=== PATIENT | male | born 1945 | race Caucasian/White ===

== ENCOUNTER 2018-09-10 15:20 | Inpatient (IN) | payer MEDICARE, BC ==
[2018-09-10] MEDS ORDERED: IPRATROPIUM-ALBUTEROL 3 ML NEB INHALATION STA (15:45)
--- NOTE | 2018-09-10 15:45 | ED ---
General Adult HPI - General Chief complaint: Shortness of Breath Stated complaint: Sob Time Seen by Provider: 09/10/18 15:20 Source: EMS, RN notes reviewed Mode of arrival: EMS Limitations: no limitations - History of Present Illness Initial comments: This is a 73-year-old male who presents emergency Department with a history of COPD. Presents to [facility] with difficulty breathing. 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 Patient refuses BiPAP patient refused intubation and patient refuses any CPR. Patient understands that he has agreed to a no CODE STATUS. Patient states the difficulty breathing started a few days ago and has gotten progressively worse. Patient denies any chest pain or palpitations. Patient denies headache patient denies numbness or weakness. Patient denies abdominal pain patient denies nausea vomiting diarrhea. According to EMS he's been oxygenating at 98% high flow oxygen via nasal cannula high flow device. Patient states he does feel better than when he was initially seen at [facility] but he still is worse than his baseline. - Related Data Home Medications Medication Instructions Recorded Confirmed ALPRAZolam [Xanax] 0.25 mg PO DAILY PRN 04/04/16 04/04/16 Albuterol Sulfate [Proair Hfa] 2 puff INHALATION RT-Q6H PRN 04/04/16 04/04/16 Aspirin 81 mg PO DAILY 04/04/16 04/04/16 Budesonide/Formoterol Fumarate 2 puff INHALATION RT-BID 04/04/16 04/04/16 [Symbicort 160-4.5 Mcg Inhaler] Cholecalciferol [Vitamin D3] 1,000 unit PO DAILY 04/04/16 04/04/16 Esomeprazole Magnesium [NexIUM] 40 mg PO DAILY 04/04/16 04/04/16 Nac (N-Acetyl Cysteine) 600 mg PO BID 04/04/16 04/04/16 Nitroglycerin Sl Tabs [Nitrostat] 0.4 mg SUBLINGUAL Q5M PRN 04/04/16 04/04/16 Potassium Chloride [K-Tab ER] 10 meq PO MOWEFR 04/04/16 04/04/16 Previous Rx's Medication Instructions Recorded Albuterol Nebulized [Ventolin 2.5 mg INHALATION RT-QID PRN #0 04/08/16 Nebulized] Atorvastatin [Lipitor] 80 mg PO HS #30 tab 04/08/16 Clopidogrel [Plavix] 75 mg PO DAILY #30 tab 04/08/16 Hydrochlorothiazide [Hydrodiuril] 25 mg PO MoWeFr@0900 #0 tab 04/08/16 Ipratropium Nebulized [Atrovent 0.5 mg INHALATION RT-QID #0 04/08/16 Nebulized 0.2 MG/ML] Isosorbide Mononitrate ER [Imdur] 60 mg PO DAILY #30 tab.er.24h 04/08/16 Levofloxacin [Levaquin] 500 mg PO Q24H #7 tab 04/08/16 Metoprolol Tartrate [Lopressor] 25 mg PO BID #60 tab 04/08/16 predniSONE 10 mg PO DIRECTED #48 tab 04/08/16 predniSONE 10 mg PO DAILY #0 04/08/16 Allergies Allergy/AdvReac Type Severity Reaction Status Date / Time Penicillins Allergy Rash/Hives Verified 04/04/16 16:17 Review of Systems ROS Statement: Those systems with pertinent positive or pertinent negative responses have been documented in the HPI. ROS Other: All systems not noted in ROS Statement are negative. Past Medical History Past Medical History: Chest Pain / Angina, COPD, GERD/Reflux, Hypertension Additional Past Medical History / Comment(s): Chronic back pain; skin cancer History of Any Multi-Drug Resistant Organisms: None Reported Past Surgical History: Appendectomy, Cholecystectomy, Heart Catheterization, Hernia Repair Additional Past Surgical History / Comment(s): Right lung collapse x2, vasectomy, 2007 heart catheterization, 2002 and 2008 checked for bladder cancer, skin cancer removal, cataracts removed Past Anesthesia/Blood Transfusion Reactions: No Reported Reaction Past Psychological History: No Psychological Hx Reported Smoking Status: Former smoker Past Alcohol Use History: Occasional Past Drug Use History: None Reported General Exam - General Exam Comments Initial Comments: GENERAL: Patient is well-developed and well-nourished. Patient is nontoxic and well- hydrated and is in mild distress. ENT: Neck is soft and supple. No significant lymphadenopathy is noted. Oropharynx is clear. Moist mucous membranes. Neck has full range of motion without eliciting any pain. EYES: The sclera were anicteric and conjunctiva were pink and moist. Extraocular movements were intact and pupils were equal round and reactive to light. Eyelids were unremarkable. PULMONARY: Respiratory wheezing and diminished breath sounds throughout CARDIOVASCULAR: There is a regular rate and rhythm without any murmurs gallops or rubs. ABDOMEN: Soft and nontender with normal bowel sounds. No palpable organomegaly was noted. There is no palpable pulsatile mass. SKIN: Multiple areas of ecchymosis NEUROLOGIC: Patient is alert and oriented x3. Cranial nerves II through XII are grossly intact. Motor and sensory are also intact. Normal speech, volume and content. Symmetrical smile. MUSCULOSKELETAL: Normal extremities with adequate strength and full range of motion. 2+ edema bilateral with left being greater than right LYMPHATICS: No significant lymphadenopathy is noted PSYCHIATRIC: Normal psychiatric evaluation. Limitations: no limitations Course Vital Signs 09/10/18 15:29 Temperature 98.2 F Pulse Rate 105 H Respiratory 26 H Rate Blood Pressure 141/85 O2 Sat by Pulse 95 Oximetry Medical Decision Making - Medical Decision Making EKG shows sinus tachycardia at 104 bpm [place] interval 230 Q's is 96 QT interval 380 QTC is 499. Patient's EKG shows no ST segment elevation or depression. I spoke with Dr. Hoffman agreed to accept the patient I wrote admitting orders and consult Dr. Villanueva. Patient was adamant that he was a no code and did not even want BiPAP. Patient he refused any type of mask. Disposition Clinical Impression: Acute exacerbation of chronic obstructive airways disease Disposition: ADMITTED IP TO THIS HOSP Referrals: Trinity Guerra MD [Primary Care Provider] - 1-2 days Time of Disposition: 15:45
[2018-09-10] MEDS: methylPREDNISolone SOD SUCCI 125 MG/2 ML VIAL IV SCH (19:00)
[2018-09-10] MEDS: IPRATROPIUM-ALBUTEROL 3 ML NEB INHALATION PRN ×2 (19:45→23:15)
[2018-09-10] MEDS ORDERED: ALPRAZolam 0.25 MG TAB PO PRN (21:07)
[2018-09-10] MEDS: ATORVASTATIN 80 MG TAB PO SCH (21:28)
[2018-09-10] MEDS: HYDROcodone/APAP 5-325MG 1 EACH TAB PO PRN (21:28)
[2018-09-10] MEDS: METOPROLOL TARTRATE 25 MG TAB PO SCH (21:28)
--- NOTE | 2018-09-10 23:49 | P.HPIM ---
History of Present Illness H&P Date: 09/10/18 Chief Complaint: Shortness of breath Patient is a 73-year-old male with a known history of COPD on follow with Dr. Phillips in the clinic, coronary artery disease currently on maximal medical therapy, GERD, hypertension, chronic back pain and history of skin cancer removed, previous history of smoking was initially presented to [facility] due to difficulty in breathing for the past few days and is getting worse. Patient was initially seen at [facility] and was treated for acute COPD exacerbation. 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 The patient refused to wear BiPAP machine. Currently on high flow nasal cannula oxygen. Otherwise patient denied any fever or chills. Patient does have cough without sputum production. Denied any recent illnesses. Denied any nausea vomiting or abdominal pain or diarrhea. No dysuria or hematuria. Patient has been afebrile. Patient is currently DO NOT RESUSCITATE. Patient does have a history of cardiac catheterization and was told blockages were inoperable. Currently on maximal medical therapy. Chest x-ray and laboratory data reviewed from [facility]. Review of Systems Constitutional: Patient denies any fever or chills . No generalized weakness or weight loss. Abdomen: Patient denied nausea vomiting and diarrhea and abdominal pain. Cardiovascular: Patient denies any chest pain or short of breath no palpitations. Respiratory: Patient does have cough without sputum production. Patient does have shortness of breath Neurologic: Patient denied any numbness or tingling headache. Musculoskeletal: Patient denies any complaints of joint swelling or deformity. Skin: Negative Psychiatric: Negative Endocrine: No heat or cold intolerance. No recent weight gain. Genitourinary: No dysuria or hematuria. All other 14 point ROS negative except the above Past Medical History Past Medical History: Chest Pain / Angina, COPD, GERD/Reflux, Hypertension Additional Past Medical History / Comment(s): Chronic back pain; skin cancer History of Any Multi-Drug Resistant Organisms: None Reported Past Surgical History: Appendectomy, Cholecystectomy, Heart Catheterization, Hernia Repair Additional Past Surgical History / Comment(s): Right lung collapse x2, vasectomy, 2007 heart catheterization, 2002 and 2008 checked for bladder cancer, skin cancer removal, cataracts removed Past Anesthesia/Blood Transfusion Reactions: No Reported Reaction Past Psychological History: No Psychological Hx Reported Smoking Status: Former smoker Past Alcohol Use History: Occasional Past Drug Use History: None Reported - Past Family History Mother Family Medical History: Asthma Father Family Medical History: Respiratory Disorder Medications and Allergies Home Medications Medication Instructions Recorded Confirmed Type ALPRAZolam [Xanax] 0.25 mg PO DAILY PRN 04/04/16 09/10/18 History Aspirin 81 mg PO DAILY 04/04/16 09/10/18 History Budesonide/Formoterol Fumarate 2 puff INHALATION RT-BID 04/04/16 09/10/18 History [Symbicort 160-4.5 Mcg Inhaler] Cholecalciferol [Vitamin D3] 1,000 unit PO DAILY 04/04/16 09/10/18 History Nac (N-Acetyl Cysteine) 600 mg PO BID 04/04/16 09/10/18 History Nitroglycerin Sl Tabs [Nitrostat] 0.4 mg SUBLINGUAL Q5M PRN 04/04/16 09/10/18 History Atorvastatin [Lipitor] 80 mg PO HS #30 tab 04/08/16 09/10/18 Rx Clopidogrel [Plavix] 75 mg PO DAILY #30 tab 04/08/16 09/10/18 Rx Isosorbide Mononitrate ER [Imdur] 60 mg PO DAILY #30 tab.er.24h 04/08/16 09/10/18 Rx predniSONE 10 mg PO DAILY #0 04/08/16 09/10/18 Rx Esomeprazole Magnesium [NexIUM] 20 mg PO DAILY 09/10/18 09/10/18 History Hydrochlorothiazide [Hydrodiuril] 25 mg PO DAILY 09/10/18 09/10/18 History Hydrocodone/Acetaminophen [[place] 1 tab PO Q4HR PRN 09/10/18 09/10/18 History 5-325] Metoprolol Tartrate [Lopressor] 25 mg PO HS 09/10/18 09/10/18 History Potassium Chloride [Klor-Con 20] 20 meq PO DAILY 09/10/18 09/10/18 History Promethaz-Cod 6.25-10 mg/5 ml 5 ml PO Q6HR PRN 09/10/18 09/10/18 History [Phenergan with Codeine] Allergies Allergy/AdvReac Type Severity Reaction Status Date / Time Penicillins Allergy Rash/Hives Verified 09/10/18 17:32 Physical Exam Vitals: Vital Signs Temp Pulse Pulse Resp BP BP Pulse Ox 09/10/18 23:26 76 09/10/18 23:15 80 09/10/18 21:15 98.6 F 104 H 18 162/82 96 09/10/18 20:48 98.8 F 104 H 20 147/83 97 09/10/18 19:57 101 H 09/10/18 19:45 100 09/10/18 19:00 87 22 139/42 94 L 09/10/18 16:57 98 20 96 09/10/18 16:35 104 H 09/10/18 16:22 101 H 09/10/18 15:29 98.2 F 105 H 26 H 141/85 95 Intake and Output 09/10/18 09/10/18 09/11/18 14:59 22:59 06:59 Other: Weight 81.647 kg PHYSICAL EXAMINATION: Patient is lying in the bed comfortably, no acute distress, awake alert and oriented.. HEENT: Normocephalic. Neck is supple. Pupils reactive. Nostrils clear. Oral cavity is moist. Ears reveal no drainage. Neck reveals no JVD, carotid bruits, or thyromegaly. CHEST EXAMINATION: Trachea is central. Symmetrical expansion. Bilateral diffuse wheezing and scattered rhonchi. CARDIAC: Normal S1, S2 with no gallops. No murmurs ABDOMEN: Soft. Bowel sounds normal. No organomegaly. No abdominal bruits. Extremities: reveal no edema. No clubbing or cyanosis Neurologically awake, alert, oriented x3 with well-coordinated movements. No focal deficits noted Skin: No rash or skin lesions. Psychiatric: Coperative. Nonsuicidal Musculoskeletal: No joint swelling or deformity. Normal range of motion. Thrombosis Risk Factor Assmnt - DVT/VTE Prophylaxis DVT/VTE Prophylaxis: Pharmacologic Prophylaxis ordered - Choose All That Apply Any of the Below Risk Factors Present?: Yes Each Factor Represents 1 point: Abnormal pulmonary function (COPD) Other Risk Factors: Yes Each Risk Factor Represents 2 Points: Age 61-74 years Thrombosis Risk Factor Assessment Total Risk Factor Score: 3 Thrombosis Risk Factor Assessment Level: Moderate Risk Assessment and Plan Assessment: Acute COPD exacerbation Acute hypoxic respiratory failure. Patient refuses BiPAP. Currently on high flow nasal cannula oxygen. GERD Hypertension Chronic back pain Coronary artery disease status post cath. Maximum medical therapy was recommended. Previous history of smoking DVT prophylaxis with heparin subcu CODE STATUS is DO NOT RESUSCITATE/DO NOT INTUBATE Plan: Patient will be continued on DuoNeb's and IV steroids. Continue with Symbicort 2 puffs twice a day. Antibiotics will be started in the form of azithromycin. Pulmonary was consulted. Continue with oxygen therapy. Further recommendations based on the clinical course. Prognosis is guarded. Discussed with the patient and family at bedside in detail. Time with Patient: Greater than 30
[2018-09-11] MEDS: methylPREDNISolone SOD SUCCI 125 MG/2 ML VIAL IV SCH ×4 (00:10→17:28)
[2018-09-11] MEDS: HEPARIN SODIUM,PORCINE 5,000 UNIT/ML 1 ML VIAL SQ SCH ×3 (00:10→16:04)
[2018-09-11] MEDS: AZITHROMYCIN 500 MG TAB PO SCH ×2 (00:10→22:20)
[2018-09-11] MEDS: IPRATROPIUM-ALBUTEROL 3 ML NEB INHALATION PRN ×3 (03:11→11:02)
[2018-09-11 07:17] LABS: Glucose,Whole Blood 170 mg/dL (75-99)
--- NOTE | 2018-09-11 07:41 | XR ---
EXAMINATION TYPE: XR chest 1V DATE OF EXAM: 09/11/2018 COMPARISON: 09/10/2018 HISTORY: COPD TECHNIQUE: Single frontal view of the chest is obtained. FINDINGS: There is marked hyperinflation. Subsegmental changes involving the lung bases are noted. F indings are suspicious for a nodular density measuring 1 cm the right upper lobe. No overt failure. P ulmonary arteries prominent. IMPRESSION: 1. Stable severe COPD with basilar atelectasis favored over pneumonia. Correlate for pulmonary arteri al hypertension. 2. There is a 1 cm nodule in the right upper lobe CT chest recommended.
[2018-09-11] MEDS ORDERED: SYMBICORT 160-4.5 MCG INHALER INHALATION SCH (08:00)
[2018-09-11] MEDS: HYDROCHLOROTHIAZIDE 25 MG TAB PO SCH (08:37)
[2018-09-11] MEDS: CLOPIDOGREL 75 MG TAB PO SCH (08:37)
[2018-09-11] MEDS: HYDROcodone/APAP 5-325MG 1 EACH TAB PO PRN ×3 (08:37→19:21)
[2018-09-11] MEDS: POTASSIUM CHLORIDE ER 20 MEQ TAB.ER PO SCH (08:37)
[2018-09-11] MEDS: CHOLECALCIFEROL 1,000 UNIT TAB PO SCH (08:38)
[2018-09-11] MEDS: ISOSORBIDE MONONITRATE ER 60 MG TAB.ER.24H PO SCH (08:38)
[2018-09-11] MEDS: ASPIRIN 81 MG PO SCH (08:38)
[2018-09-11 10:03] LABS: ALT 45 U/L (21-72); AST 38 U/L (17-59); Albumin 3.4 g/dL (3.5-5.0); Alkaline Phosphatase 77 U/L (38-126); Anion Gap 5 mmol/L; Blood Urea Nitrogen 26 mg/dL (9-20); Calcium 8.7 mg/dL (8.4-10.2); Carbon Dioxide 37 mmol/L (22-30); Chloride 99 mmol/L (98-107); Glucose 166 mg/dL (74-99); Potassium 4.3 mmol/L (3.5-5.1); Sodium 141 mmol/L (137-145); Total Bilirubin 0.7 mg/dL (0.2-1.3); Total Protein 5.8 g/dL (6.3-8.2)
[2018-09-11 10:30] LABS: Basophils % (A) 0 %; Eosinophils # (A) 0.1 k/uL (0-0.7); Eosinophils % (A) 1 %; HCT 41.4 % (39.0-53.0); HGB 13.1 gm/dL (13.0-17.5); Hypochromasia Slight; Lymphocytes # (A) 0.3 k/uL (1.0-4.8); Lymphocytes % (A) 6 %; MCH 28.8 pg (25.0-35.0); MCHC 31.5 g/dL (31.0-37.0); MCV 91.2 fL (80.0-100.0); Mean Platelet Volume 7.8; Monocytes # (A) 0.4 k/uL (0-1.0); Monocytes % (A) 8 %; Neutrophils # (A) 4.2 k/uL (1.3-7.7); Neutrophils % (A) 84 %; Platelet Count 163 k/uL (150-450); RBC 4.54 m/uL (4.30-5.90); RDW 14.5 % (11.5-15.5)
[2018-09-11 11:48] LABS: Glucose,Whole Blood 193 mg/dL (75-99)
--- NOTE | 2018-09-11 11:54 | P.CNPUL ---
History of Present Illness Consult date: 09/11/18 Requesting physician: Chaitanya Hoffman Reason for consult: dyspnea, cough, COPD Chief complaint: dyspnea, cough History of present illness: This is 73-year-old white male patient of Dr. Trinity Guerra, past medical history of advanced COPD, with baseline FEV1 of 0.53 L or 16% of the predicted v tawnya, with diffusion capacity of 51% of predicted, with chronic hypoxemic respiratory failure, who presented to the hospital on 09/10/2018 with complaints of dyspnea. Patient initially went to [facility] and was transferred to this hospital. Patient had refused BiPAP support refused intubation and CPR, his CODE STATUS is DO NOT RESUSCITATE. Patient symptoms started a few days ago and became progressively worse. Denied any chest pain or palpitations, denied any headaches, no fever or chills, no nausea vomiting or diarrhea.patient is a former smoker, but has quit smoking a while ago. Follows with Dr. Karimi in the pulmonary clinic, last seen in October 2017. he is on Inkruse Ellipta, DuoNeb, Ventolin, Symbicort at home, patient is on maintenance dose prednisone 10 mg daily. chest x-ray at [facility] showed marked hyperinflation, basilar atelectasis, pulmonary arterial hypertension, and a 1 cm nodule in the right upper lobe. lab work has been reviewed, no evidence of leukocytosis, CBC was unremarkable, electrolytes were unremarkable, CO2 is 37 consistent with history of chronic hypercapnic respiratory failure, BUN is 26 and creatinine 0.49. LFTs were within normal limits. he remains on 10 L per high flow nasal cannula, and his pulse ox is 99%.empiric antibiotic coverage in the form of Zithromax, nebulized bronchodilators, IV steroids, Symbicort. Review of Systems All systems: negative Constitutional: Denies chills, Denies fever Eyes: denies blurred vision, denies pain Ears, nose, mouth and throat: Denies headache, Denies sore throat Cardiovascular: Reports decreased exercise tolerance, Reports dyspnea on exertion, Denies chest pain, Denies shortness of breath Respiratory: Reports dyspnea, Reports home oxygen, Denies cough Gastrointestinal: Denies abdominal pain, Denies diarrhea, Denies nausea, Denies vomiting Musculoskeletal: Denies myalgias Integumentary: Denies pruritus, Denies rash Neurological: Denies numbness, Denies weakness Psychiatric: Denies anxiety, Denies depression Endocrine: Denies fatigue, Denies weight change Past Medical History Past Medical History: Chest Pain / Angina, COPD, GERD/Reflux, Hypertension Additional Past Medical History / Comment(s): Chronic back pain; skin cancer History of Any Multi-Drug Resistant Organisms: None Reported Past Surgical History: Appendectomy, Cholecystectomy, Heart Catheterization, Hernia Repair Additional Past Surgical History / Comment(s): Right lung collapse x2, vasectomy, 2007 heart catheterization, 2002 and 2008 checked for bladder cancer, skin cancer removal, cataracts removed Past Anesthesia/Blood Transfusion Reactions: No Reported Reaction Past Psychological History: No Psychological Hx Reported Smoking Status: Former smoker Past Alcohol Use History: Occasional Past Drug Use History: None Reported - Past Family History Mother Family Medical History: Asthma Father Family Medical History: Respiratory Disorder Medications and Allergies Home Medications Medication Instructions Recorded Confirmed Type ALPRAZolam [Xanax] 0.25 mg PO DAILY PRN 04/04/16 09/10/18 History Aspirin 81 mg PO DAILY 04/04/16 09/10/18 History Budesonide/Formoterol Fumarate 2 puff INHALATION RT-BID 04/04/16 09/10/18 History [Symbicort 160-4.5 Mcg Inhaler] Cholecalciferol [Vitamin D3] 1,000 unit PO DAILY 04/04/16 09/10/18 History Nac (N-Acetyl Cysteine) 600 mg PO BID 04/04/16 09/10/18 History Nitroglycerin Sl Tabs [Nitrostat] 0.4 mg SUBLINGUAL Q5M PRN 04/04/16 09/10/18 Hi story Atorvastatin [Lipitor] 80 mg PO HS #30 tab 04/08/16 09/10/18 Rx Clopidogrel [Plavix] 75 mg PO DAILY #30 tab 04/08/16 09/10/18 Rx Isosorbide Mononitrate ER [Imdur] 60 mg PO DAILY #30 tab.er.24h 04/08/16 09/10/18 Rx predniSONE 10 mg PO DAILY #0 04/08/16 09/10/18 Rx Esomeprazole Magnesium [NexIUM] 20 mg PO DAILY 09/10/18 09/10/18 History Hydrochlorothiazide [Hydrodiuril] 25 mg PO DAILY 09/10/18 09/10/18 History Hydrocodone/Acetaminophen [[place] 1 tab PO Q4HR PRN 09/10/18 09/10/18 History 5-325] Metoprolol Tartrate [Lopressor] 25 mg PO HS 09/10/18 09/10/18 History Potassium Chloride [Klor-Con 20] 20 meq PO DAILY 09/10/18 09/10/18 History Promethaz-Cod 6.25-10 mg/5 ml 5 ml PO Q6HR PRN 09/10/18 09/10/18 History [Phenergan with Codeine] Allergies Allergy/AdvReac Type Severity Reaction Status Date / Time Penicillins Allergy Rash/Hives Verified 09/10/18 17:32 Physical Exam Vitals: Vital Signs Temp Pulse Pulse Resp BP BP Pulse Ox 09/11/18 11:14 92 09/11/18 11:03 96 09/11/18 08:00 12 09/11/18 07:37 100 09/11/18 07:19 92 09/11/18 07:09 98.2 F 77 12 161/78 99 09/11/18 03:23 84 09/11/18 03:11 72 09/11/18 01:14 98.3 F 73 18 143/79 97 09/11/18 00:25 18 09/10/18 23:26 76 09/10/18 23:15 80 09/10/18 21:15 98.6 F 104 H 18 162/82 96 09/10/18 20:48 98.8 F 104 H 20 147/83 97 09/10/18 20:35 76 18 09/10/18 19:57 101 H 09/10/18 19:45 100 09/10/18 19:00 87 22 139/42 94 L 09/10/18 16:57 98 20 96 09/10/18 16:35 104 H 09/10/18 16:22 101 H 09/10/18 15:29 98.2 F 105 H 26 H 141/85 95 Intake and Output 09/10/18 09/11/18 09/11/18 22:59 06:59 14:59 Intake Total 250 Output Total 425 200 Balance 250 -425 -200 Intake: Oral 250 Output: Urine 425 200 Other: Voiding Method Urinal Toilet Urinal # Voids 2 2 Weight 81.647 kg GENERAL EXAM: Alert, pleasant, 73-year-old white male, on 10 L per high flow nasal cannula with a pulse ox of 99%. EYES: Normal reaction of pupils, equal size. Conjunctiva pink, sclera white. NOSE: Clear with pink turbinates. THROAT: No erythema or exudates. NECK: No masses, no JVD, no thyroid enlargement, no adenopathy. CHEST: No chest wall deformity. Symmetrical expansion. LUNGS: Equal air entry with diminished breath sounds, expiratory wheezes, pr olongation of the expiratory phase CVS: Regular rate and rhythm, normal S1 and S2, no gallops, no murmurs, no rubs ABDOMEN: Soft, nontender. No hepatosplenomegaly, normal bowel sounds, no guarding or rigidity. EXTREMITIES: No clubbing, 1+ lower extremity edema, chronic venous stasis changes present to lower extremities, no cyanosis, 2+ pulses and upper and lower extremities. MUSCULOSKELETAL: Muscle strength and tone normal. SPINE: No scoliosis or deformity SKIN: patient has multiple bruises, flaking and thinning of the skin consistent with chronic prednisone use CENTRAL NERVOUS SYSTEM: Alert and oriented -3. No focal deficits, tone is normal in all 4 extremities. PSYCHIATRIC: Alert and oriented -3. Appropriate affect. Intact judgment and insight. Results - Laboratory Findings CBC and BMP: 09/11/18 08:37 09/11/18 08:37 Abnormal lab findings: Abnormal Labs 09/11/18 09/11/18 09/11/18 07:06 08:37 08:37 Lymphocytes # 0.3 L Carbon Dioxide 37 H BUN 26 H Creatinine 0.49 L Glucose 166 H POC Glucose (mg/dL) 170 H Total Protein 5.8 L Albumin 3.4 L - Diagnostic Findings Chest x-ray: report reviewed, image reviewed Assessment and Plan Plan: Assessment: #1. Acute on chronic hypoxemic respiratory failure related to exacerbation of severe chronic obstructive pulmonary disease, chest x-ray did not show any clear evidence of pneumonia. It did show a 1 cm nodule in the right upper lobe, will be followed on outpatient basis #2. advanced COPD, with FEV1 of 16% of predicted, consistent with stage IV COPD with chronic hypoxemic and hypercapnic respiratory failure, on home oxygen and maintenance dose prednisone #3. Former nicotine dependence, in remission #4. hypertension #5. History of chronic back pain #6. previous episode of pneumothorax 2 #7. History of skin cancer with surgical removal #8. History of thyroid nodule #9. Inguinal hernia Plan: We'll continue with IV steroids, nebulized bronchodilators, we will switch the Symbicort to Pulmicort and Perforomist. CODE STATUS is DO NOT RESUSCITATE, we'll continue with supportive treatment, wean FiO2. chest x-rays were reviewed with Dr. Shankar, no clear evidence of pneumonia. We'll treat the patient for COPD exacerbation. I performed a history & physical examination of the patient and discussed their management with my nurse practitioner, Mariella Manjarrez. I reviewed the nurse pra ctitioner's note and agree with the documented findings and plan of care. Lung sounds are positive for diminished breath sounds with expiratory wheezes. The findings and the impression was discussed with the patient. I attest to the documentation by the nurse practitioner. Time with Patient: Greater than 30
[2018-09-11] MEDS: IPRATROPIUM-ALBUTEROL 3 ML NEB INHALATION SCH ×4 (13:01→23:34)
[2018-09-11] MEDS: NITROGLYCERIN SL TABS 0.4 MG TAB SUBLINGUAL PRN (14:39)
[2018-09-11] MEDS ORDERED: ALPRAZolam 0.5 MG TAB PO PRN (19:26)
[2018-09-11] MEDS: FORMOTEROL FUMARATE 20 MCG/2 ML NEBU INHALATION SCH (19:35)
[2018-09-11] MEDS: BUDESONIDE 1 MG/2 ML NEBU INHALATION SCH (19:35)
[2018-09-11 20:48] LABS: Glucose,Whole Blood 183 mg/dL (75-99)
[2018-09-11] MEDS: METOPROLOL TARTRATE 25 MG TAB PO SCH (22:20)
[2018-09-11] MEDS: ATORVASTATIN 80 MG TAB PO SCH (22:20)
[2018-09-11] MEDS: INSULIN ASPART (NovoLOG) 100 UNIT/ML VIAL SQ SCH (22:20)
[2018-09-12] MEDS: methylPREDNISolone SOD SUCCI 125 MG/2 ML VIAL IV SCH ×4 (01:15→18:09)
[2018-09-12] MEDS: HEPARIN SODIUM,PORCINE 5,000 UNIT/ML 1 ML VIAL SQ SCH ×3 (01:15→18:09)
[2018-09-12] MEDS: IPRATROPIUM-ALBUTEROL 3 ML NEB INHALATION SCH ×5 (03:26→20:01)
[2018-09-12 07:06] LABS: Glucose,Whole Blood 158 mg/dL (75-99)
[2018-09-12] MEDS: INSULIN ASPART (NovoLOG) 100 UNIT/ML VIAL SQ SCH ×4 (08:25→21:57)
[2018-09-12] MEDS: HYDROcodone/APAP 5-325MG 1 EACH TAB PO PRN ×3 (08:27→21:56)
[2018-09-12] MEDS: ISOSORBIDE MONONITRATE ER 60 MG TAB.ER.24H PO SCH (08:29)
[2018-09-12] MEDS: PANTOPRAZOLE 40 MG TABLET PO SCH (08:29)
[2018-09-12] MEDS: POTASSIUM CHLORIDE ER 20 MEQ TAB.ER PO SCH (08:29)
[2018-09-12] MEDS: ASPIRIN 81 MG PO SCH (08:29)
[2018-09-12] MEDS: CLOPIDOGREL 75 MG TAB PO SCH (08:29)
[2018-09-12] MEDS: CHOLECALCIFEROL 1,000 UNIT TAB PO SCH (08:29)
[2018-09-12] MEDS: HYDROCHLOROTHIAZIDE 25 MG TAB PO SCH (08:29)
[2018-09-12] MEDS: BUDESONIDE 1 MG/2 ML NEBU INHALATION SCH ×2 (08:47→20:01)
[2018-09-12] MEDS: FORMOTEROL FUMARATE 20 MCG/2 ML NEBU INHALATION SCH ×2 (09:02→20:01)
[2018-09-12 11:29] LABS: Glucose,Whole Blood 169 mg/dL (75-99)
--- NOTE | 2018-09-12 14:08 | P.PN ---
Subjective Progress Note Date: 09/12/18 Principal diagnosis: Acute exacerbation of chronic obstructive pulmonary disease. This is 73-year-old white male patient of Dr. Trinity Guerra, past medical history of advanced COPD, with baseline FEV1 of 0.53 L or 16% of the predicted value, with diffusion capacity of 51% of predicted, with chronic hypoxemic respiratory failure, who presented to the hospital on 09/10/2018 with complaints of dyspnea. Patient initially went to [facility] and was transferred to this hospital. Patient had refused BiPAP support refused intubation and CPR, his CODE STATUS is DO NOT RESUSCITATE. Patient symptoms started a few days ago and became progressively worse. Denied any chest pain or palpitations, denied any headaches, no fever or chills, no nausea vomiting or diarrhea.patient is a former smoker, but has quit smoking a while ago. Follows with Dr. Karimi in the pulmonary clinic, last seen in October 2017. he is on Inkruse Ellipta, DuoNeb, Ventolin, Symbicort at home, patient is on maintenance dose prednisone 10 mg daily. chest x-ray at [facility] showed marked hyperinflation, basilar atelectasis, pulmonary arterial hypertension, and a 1 cm nodule in the right upp er lobe. lab work has been reviewed, no evidence of leukocytosis, CBC was unremarkable, electrolytes were unremarkable, CO2 is 37 consistent with history of chronic hypercapnic respiratory failure, BUN is 26 and creatinine 0.49. LFTs were within normal limits. he remains on 10 L per high flow nasal cannula, and his pulse ox is 99%.empiric antibiotic coverage in the form of Zithromax, nebulized bronchodilators, IV steroids, Symbicort. The patient is seen today 09/12/2018 in follow-up on the regular medical floor. He is currently awake and alert in no acute distress. He is resting comfortably in bed. He states he is still quite dyspneic on minimal exertion. Still not back to his baseline. He has still on 10 L high flow nasal cannula and maintaining O2 saturations in the 90s. Slightly tachycardic. Tachypneic. He remains on DuoNeb inhalations, Pulmicort and Perforomist inhalations, IV site Medrol, antibiotics in the form of azithromycin. Objective - Vital Signs Vital signs: Vital Signs Temp 98.0 F 09/12/18 07:00 Pulse 102 H 09/12/18 12:34 Resp 22 09/12/18 08:49 BP 138/79 09/12/18 07:00 Pulse Ox 94 L 09/12/18 08:49 Intake & Output 09/11/18 09/12/18 09/12/18 18:59 06:59 18:59 Intake Total 60 425 180 Output Total 200 200 200 Balance -140 225 -20 Intake: Oral 60 425 180 Output: Urine 200 200 200 Other: Voiding Method Toilet Toilet Toilet Urinal Urinal Urinal # Voids 4 3 1 - Exam GENERAL EXAM: Alert, pleasant, 73-year-old white male, on 10 L per high flow nasal cannula with a pulse ox of 99%. EYES: Normal reaction of pupils, equal size. Conjunctiva pink, sclera white. NOSE: Clear with pink turbinates. THROAT: No erythema or exudates. NECK: No masses, no JVD, no thyroid enlargement, no adenopathy. CHEST: No chest wall deformity. Symmetrical expansion. LUNGS: Equal air entry with diminished breath sounds, expiratory wheezes, prolongation of the expiratory phase CVS: Regular rate and rhythm, normal S1 and S2, no gallops, no murmurs, no rubs ABDOMEN: Soft, nontender. No hepatosplenomegaly, normal bowel sounds, no guarding or rigidity. EXTREMITIES: No clubbing, 1+ lower extremity edema, chronic venous stasis changes present to lower extremities, no cyanosis, 2+ pulses and upper and lower extremities. MUSCULOSKELETAL: Muscle strength and tone normal. SPINE: No scoliosis or deformity SKIN: patient has multiple bruises, flaking and thinning of the skin consistent with chronic prednisone use CENTRAL NERVOUS SYSTEM: Alert and oriented -3. No focal deficits, tone is normal in all 4 extremities. PSYCHIATRIC: Alert and oriented -3. Appropriate affect. Intact judgment and insight. - Labs CBC & Chem 7: 09/11/18 08:37 09/11/18 08:37 Labs: Abnormal Lab Results - Last 24 Hours (Table) 09/11/18 09/12/18 09/12/18 Range/Units 20:41 07:05 11:28 POC Glucose (mg/dL) 183 H 158 H 169 H (75-99) mg/dL Assessment and Plan Assessment: Assessment: #1. Acute on chronic hypoxemic respiratory failure related to exacerbation of severe chronic obstructive pulmonary disease, chest x-ray did not show any clear evidence of pneumonia. It did show a 1 cm nodule in the right upper lobe, will be followed on outpatient basis #2. advanced COPD, with FEV1 of 16% of predicted, consistent with stage IV COPD with chronic hypoxemic and hypercapnic respiratory failure, on home oxygen and maintenance dose prednisone #3. Former nicotine dependence, in remission #4. hypertension #5. History of chronic back pain #6. previous episode of pneumothorax 2 #7. History of skin cancer with surgical removal #8. History of thyroid nodule #9. Inguinal hernia Plan: The patient was seen and evaluated by Dr. Redmond. Still not quite back to his baseline. Continue with his current treatment plan. We'll continue to follow. I, the cosigning physician, performed a history & physical examination of the patient. Lungs sounds bilateral end expiratory wheeze. Maintaining good O2 saturations in the 90s on 10 L high flow nasal cannula. I discussed the assessment and plan of care with my nurse practitioner, Shelly Lacey. I attest to the above note as dictated by her.
[2018-09-12] MEDS ORDERED: ALPRAZolam 0.25 MG TAB PO SCH (16:00)
[2018-09-12 16:58] LABS: Glucose,Whole Blood 141 mg/dL (75-99)
[2018-09-12] MEDS: NITROGLYCERIN SL TABS 0.4 MG TAB SUBLINGUAL PRN (17:47)
[2018-09-12] MEDS: ALPRAZolam 0.25 MG TAB PO PRN (18:02)
[2018-09-12] MEDS: METOPROLOL TARTRATE 25 MG TAB PO SCH (18:08)
[2018-09-12 21:37] LABS: Glucose,Whole Blood 166 mg/dL (75-99)
[2018-09-12] MEDS: AZITHROMYCIN 500 MG TAB PO SCH (21:56)
[2018-09-12] MEDS: ATORVASTATIN 80 MG TAB PO SCH (21:56)
--- NOTE | 2018-09-12 23:22 | P.PN ---
Subjective Progress Note Date: 09/11/18 Principal diagnosis: Acute COPD exacerbation Patient is a 73-year-old male with a known history of COPD on follow with Dr. Phillips in the clinic, coronary artery disease currently on maximal medical therapy, GERD, hypertension, chronic back pain and history of skin cancer removed, previous history of smoking was initially presented to [facility] due to difficulty in breathing for the past few days and is getting worse. Patient was initially seen at [facility] and was treated for acute COPD exacerbation. 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 The patient refused to wear BiPAP machine. Currently on high flow nasal cannula oxygen. Otherwise patient denied any fever or chills. Patient does have cough without sputum production. Denied any recent illnesses. Denied any nausea vomiting or abdominal pain or diarrhea. No dysuria or hematuria. Patient has been afebrile. Patient is currently DO NOT RESUSCITATE. Patient does have a history of cardiac catheterization and was told blockages were inoperable. Currently on maximal medical therapy. Chest x-ray and laboratory data reviewed from [facility]. 09/11/2018 Patient is still having shortness of breath and is requiring high flow oxygen with another cannula. Tachypneic. Patient is being continued DuoNeb's and on IV steroids. Started on Perforomist and Pulmicort. No fever no chills. Pulmonary is following. Current medications reviewed. Objective - Vital Signs Vital signs: Vital Signs Temp 98.1 F 09/11/18 21:00 Pulse 84 09/11/18 21:00 Resp 18 09/11/18 21:00 BP 148/89 09/11/18 21:00 Pulse Ox 93 L 09/11/18 21:00 Intake & Output 09/11/18 09/11/18 09/12/18 06:59 18:59 06:59 Intake Total 250 60 Output Total 425 200 Balance -175 -140 Intake: Oral 250 60 Output: Urine 425 200 Other: Voiding Method Urinal Toilet Urinal # Voids 2 4 1 - Exam PHYSICAL EXAMINATION: Patient is lying in the bed comfortably, no acute distress, awake alert and oriented.. HEENT: Normocephalic. Neck is supple. Pupils reactive. Nostrils clear. Oral cavity is moist. Ears reveal no drainage. Neck reveals no JVD, carotid bruits, or thyromegaly. CHEST EXAMINATION: Trachea is central. Symmetrical expansion. Bilateral diffuse wheezing and scattered rhonchi. CARDIAC: Normal S1, S2 with no gallops. No murmurs ABDOMEN: Soft. Bowel sounds normal. No organomegaly. No abdominal bruits. Extremities: reveal no edema. No clubbing or cyanosis Neurologically awake, alert, oriented x3 with well-coordinated movements. No focal deficits noted Skin: No rash or skin lesions. Psychiatric: Coperative. Nonsuicidal Musculoskeletal: No joint swelling or deformity. Normal range of motion. - Labs CBC & Chem 7: 09/11/18 08:37 09/11/18 08:37 Labs: Abnormal Lab Results - Last 24 Hours (Table) 09/11/18 09/11/18 09/11/18 Range/Units 07:06 08:37 08:37 Lymphocytes # 0.3 L (1.0-4.8) k/uL Carbon Dioxide 37 H (22-30) mmol/L BUN 26 H (9-20) mg/dL Creatinine 0.49 L (0.66-1.25) mg/dL Glucose 166 H (74-99) mg/dL POC Glucose (mg/dL) 170 H (75-99) mg/dL Total Protein 5.8 L (6.3-8.2) g/dL Albumin 3.4 L (3.5-5.0) g/dL 09/11/18 09/11/18 Range/Units 11:36 20:41 Lymphocytes # (1.0-4.8) k/uL Carbon Dioxide (22-30) mmol/L BUN (9-20) mg/dL Creatinine (0.66-1.25) mg/dL Glucose (74-99) mg/dL POC Glucose (mg/dL) 193 H 183 H (75-99) mg/dL Total Protein (6.3-8.2) g/dL Albumin (3.5-5.0) g/dL Assessment and Plan Assessment: Acute COPD exacerbation Acute hypoxic respiratory failure. Patient refuses BiPAP. Currently on high flow nasal cannula oxygen. Acute on chronic hypoxic respiratory failure secondary to COPD. GERD Hypertension Chronic back pain Coronary artery disease status post cath. Maximum medical therapy was recommended. Previous history of smoking DVT prophylaxis with heparin subcu CODE STATUS is DO NOT RESUSCITATE/DO NOT INTUBATE Plan: Patient will be continued on DuoNeb's and IV steroids. DC'd Symbicort. Patient was started on Pulmicort and Perforomist. Pulmonary has seen the patient.. Antibiotics will be started in the form of azithromycin. Continue with oxygen therapy. Further recommendations based on the clinical course. Prognosis is guarded. Discussed with the patient and family at bedside in detail. Time with Patient: Greater than 30
--- NOTE | 2018-09-12 23:24 | P.PN ---
Subjective Progress Note Date: 09/12/18 Principal diagnosis: Acute COPD exacerbation Patient is a 73-year-old male with a known history of COPD on follow with Dr. Phillips in the clinic, coronary artery disease currently on maximal medical therapy, GERD, hypertension, chronic back pain and history of skin cancer removed, previous history of smoking was initially presented to [facility] due to difficulty in breathing for the past few days and is getting worse. Patient was initially seen at [facility] and was treated for acute COPD exacerbation. 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 The patient refused to wear BiPAP machine. Currently on high flow nasal cannula oxygen. Otherwise patient denied any fever or chills. Patient does have cough without sputum production. Denied any recent illnesses. Denied any nausea vomiting or abdominal pain or diarrhea. No dysuria or hematuria. Patient has been afebrile. Patient is currently DO NOT RESUSCITATE. Patient does have a history of cardiac catheterization and was told blockages were inoperable. Currently on maximal medical therapy. Chest x-ray and laboratory data reviewed from [facility]. 09/11/2018 Patient is still having shortness of breath and is requiring high flow oxygen with another cannula. Tachypneic. Patient is being continued DuoNeb's and on IV steroids. Started on Perforomist and Pulmicort. No fever no chills. Pulmonary is following. 09/12/2018 Patient still short of breath without much improvement compared to yesterday. Otherwise patient is awake alert and oriented. Currently on high flow nasal cannula oxygen. A elizondo is being converted on IV steroids and breathing treatments. No fever no chills. No nausea vomiting or abdominal pain. No other acute overnight issues. Current medications reviewed. Objective - Vital Signs Vital signs: Vital Signs Temp 98.3 F 09/12/18 21:30 Pulse 76 09/12/18 21:30 Resp 20 09/12/18 21:30 BP 154/88 09/12/18 21:30 Pulse Ox 96 09/12/18 21:30 Intake & Output 09/12/18 09/12/18 09/13/18 06:59 18:59 06:59 Intake Total 425 180 Output Total 200 200 Balance 225 -20 Intake: Oral 425 180 Output: Urine 200 200 Other: Voiding Method Toilet Toilet Urinal Urinal # Voids 3 1 - Exam PHYSICAL EXAMINATION: Patient is lying in the bed comfortably, no acute distress, awake alert and oriented.. HEENT: Normocephalic. Neck is supple. Pupils reactive. Nostrils clear. Oral cavity is moist. Ears reveal no drainage. Neck reveals no JVD, carotid bruits, or thyromegaly. CHEST EXAMINATION: Trachea is central. Symmetrical expansion. Bilateral diffuse wheezing and scattered rhonchi and diminished air entry. CARDIAC: Normal S1, S2 with no gallops. No murmurs ABDOMEN: Soft. Bowel sounds normal. No organomegaly. No abdominal bruits. Extremities: reveal no edema. No clubbing or cyanosis Neurologically awake, alert, oriented x3 with well-coordinated movements. No focal deficits noted Skin: No rash or skin lesions. Psychiatric: Coperative. Nonsuicidal Musculoskeletal: No joint swelling or deformity. Normal range of motion. - Labs CBC & Chem 7: 09/11/18 08:37 09/11/18 08:37 Labs: Abnormal Lab Results - Last 24 Hours (Table) 09/12/18 09/12/18 09/12/18 Range/Units 07:05 11:28 16:46 POC Glucose (mg/dL) 158 H 169 H 141 H (75-99) mg/dL 09/12/18 Range/Units 21:36 POC Glucose (mg/dL) 166 H (75-99) mg/dL Assessment and Plan Assessment: Acute COPD exacerbation Acute hypoxemic respiratory failure. Patient refuses BiPAP. Currently on high flow nasal cannula oxygen. Acute on chronic hypoxemic and hypercapnic respiratory failure secondary to COPD. Severe advanced COPD stage IV Right upper lobe 1 cm nodule. Outpatient follow recommended. GERD Hypertension Chronic back pain Coronary artery disease status post cath. Maximum medical therapy was recommended. Previous history of smoking DVT prophylaxis with heparin subcu CODE STATUS is DO NOT RESUSCITATE/DO NOT INTUBATE Plan: Patient will be continued on DuoNeb's and IV steroids. DC'd Symbicort. Patient was started on Pulmicort and Perforomist. Pulmonary has seen the patient.. Antibiotics will be started in the form of azithromycin. Continue with oxygen therapy. Further recommendations based on the clinical course. Prognosis is guarded. Discussed with the patient and family at bedside in detail. Time with Patient: Greater than 30
[2018-09-13] MEDS: IPRATROPIUM-ALBUTEROL 3 ML NEB INHALATION SCH ×7 (00:08→23:35)
[2018-09-13] MEDS: methylPREDNISolone SOD SUCCI 125 MG/2 ML VIAL IV SCH ×5 (01:40→23:32)
[2018-09-13] MEDS: HEPARIN SODIUM,PORCINE 5,000 UNIT/ML 1 ML VIAL SQ SCH ×4 (01:40→23:28)
[2018-09-13] MEDS: ALPRAZolam 0.25 MG TAB PO PRN ×3 (01:40→22:06)
[2018-09-13] MEDS: FORMOTEROL FUMARATE 20 MCG/2 ML NEBU INHALATION SCH ×2 (07:13→19:54)
[2018-09-13] MEDS: BUDESONIDE 1 MG/2 ML NEBU INHALATION SCH ×2 (07:13→19:54)
[2018-09-13 07:19] LABS: Glucose,Whole Blood 173 mg/dL (75-99)
[2018-09-13] MEDS: ASPIRIN 81 MG PO SCH (08:31)
[2018-09-13] MEDS: INSULIN ASPART (NovoLOG) 100 UNIT/ML VIAL SQ SCH ×4 (08:31→20:47)
[2018-09-13] MEDS: PANTOPRAZOLE 40 MG TABLET PO SCH (08:31)
[2018-09-13] MEDS: CHOLECALCIFEROL 1,000 UNIT TAB PO SCH (08:31)
[2018-09-13] MEDS: POTASSIUM CHLORIDE ER 20 MEQ TAB.ER PO SCH (08:32)
[2018-09-13] MEDS: CLOPIDOGREL 75 MG TAB PO SCH (08:32)
[2018-09-13] MEDS: ISOSORBIDE MONONITRATE ER 60 MG TAB.ER.24H PO SCH (08:32)
[2018-09-13] MEDS: HYDROCHLOROTHIAZIDE 25 MG TAB PO SCH (08:32)
[2018-09-13] MEDS: HYDROcodone/APAP 5-325MG 1 EACH TAB PO PRN ×4 (08:33→23:28)
[2018-09-13 11:59] LABS: Glucose,Whole Blood 183 mg/dL (75-99)
--- NOTE | 2018-09-13 13:06 | P.PN ---
Subjective Progress Note Date: 09/13/18 Principal diagnosis: Acute COPD exacerbation This is 73-year-old white male patient of Dr. Trinity Guerra, past medical history of advanced COPD, with baseline FEV1 of 0.53 L or 16% of the predicted value, with diffusion capacity of 51% of predicted, with chronic hypoxemic respiratory failure, who presented to the hospital on 09/10/2018 with complaints of dyspnea. Patient initially went to [facility] and was transferred to this hospital. Patient had refused BiPAP support refused intubation and CPR, his CODE STATUS is DO NOT RESUSCITATE. Patient symptoms started a few days ago and became progressively worse. Denied any chest pain or palpitations, denied any headaches, no fever or chills, no nausea vomiting or diarrhea.patient is a former smoker, but has quit smoking a while ago. Follows with Dr. Karimi in the pulmonary clinic, last seen in October 2017. he is on Inkruse Ellipta, DuoNeb, Ventolin, Symbicort at home, patient is on maintenance dose prednisone 10 mg daily. chest x-ray at [facility] showed marked hyperinflation, basilar atelectasis, pulmonary arterial hypertension, and a 1 cm nodule in the right upper lobe. lab work has been reviewed, no evidence of leukocytosis, CBC was unremarkable, electrolytes were unremarkable, CO2 is 37 consistent with history of chronic hypercapnic respiratory failure, BUN is 26 and creatinine 0.49. LFTs were within normal limits. he remains on 10 L per high flow nasal cannula, and his pulse ox is 99%.empiric antibiotic coverage in the form of Zithromax, nebulized bronchodilators, IV steroids, Symbicort. The patient is seen today 09/12/2018 in follow-up on the regular medical floor. He is currently awake and alert in no acute distress. He is resting comfortably in bed. He states he is still quite dyspneic on minimal exertion. Still not back to his baseline. He has still on 10 L high flow nasal cannula and maintaining O2 saturations in the 90s. Slightly tachycardic. Tachypneic. He remains on DuoNeb inhalations, Pulmicort and Perforomist inhalations, IV site Medrol, antibiotics in the form of azithromycin. On 09/13/2018 patient seen in follow-up on medical surgical floor. Patient is r esting in bed, mildly short of breath at rest, remains on 8 L of oxygen with a pulse ox of 97%. He has been on IV steroids, nebulized bronchodilators, Pulmicort and Perforomist, empiric antibiotics. Patient has been interested in hospice, he is requesting to go home with hospice care. Considering his extremely poor lung function, end-stage COPD/emphysema, other comorbidities, this is certainly reasonable. He has been voicing his request to respiratory therapist, requested to speak to us about hospice care. His is at the bedside, and agrees with his decision. Objective - Vital Signs Vital signs: Vital Signs Temp 97.8 F 09/13/18 08:35 Pulse 84 09/13/18 11:25 Resp 18 09/13/18 09:12 BP 163/80 09/13/18 08:35 Pulse Ox 97 09/13/18 07:13 Intake & Output 09/12/18 09/13/18 09/13/18 18:59 06:59 18:59 Intake Total 180 480 Output Total 200 350 100 Balance -20 130 -100 Intake: Oral 180 480 Output: Urine 200 350 100 Other: Voiding Method Toilet Toilet Urinal Urinal # Voids 1 3 - Exam GENERAL EXAM: Alert, active, mildly dyspneic at rest and conversation, he is on 8 L of oxygen with a pulse ox of 97% HEAD: Normocephalic/atraumatic. EYES: Normal reaction of pupils, equal size. Conjunctiva pink, sclera white. NOSE: Clear with pink turbinates. THROAT: No erythema or exudates. NECK: No masses, no JVD, no thyroid enlargement, no adenopathy. CHEST: No chest wall deformity. Symmetrical expansion. LUNGS: Equal air entry with extremely diminished breath sounds, with end expiratory wheezes, and prolongation of expiratory phase of breathing CVS: Regular rate and rhythm, normal S1 and S2, no gallops, no murmurs, no rubs ABDOMEN: Soft, nontender. No hepatosplenomegaly, normal bowel sounds, no guarding or rigidity. EXTREMITIES: No clubbing, no edema, no cyanosis, 2+ pulses and upper and lower extremities. MUSCULOSKELETAL: Muscle strength and tone normal. SPINE: No scoliosis or deformity SKIN: No rashes CENTRAL NERVOUS SYSTEM: Alert and oriented -3. No focal deficits, tone is normal in all 4 extremities. PSYCHIATRIC: Alert and oriented -3. Appropriate affect. Intact judgment and insight. - Labs CBC & Chem 7: 09/11/18 08:37 09/11/18 08:37 Labs: Abnormal Lab Results - Last 24 Hours (Table) 09/12/18 09/12/18 09/13/18 Range/Units 16:46 21:36 07:05 POC Glucose (mg/dL) 141 H 166 H 173 H (75-99) mg/dL 09/13/18 Range/Units 11:44 POC Glucose (mg/dL) 183 H (75-99) mg/dL Assessment and Plan Plan: Assessment: #1. Acute on chronic hypoxemic respiratory failure related to exacerbation of severe chronic obstructive pulmonary disease, chest x-ray did not show any clear evidence of pneumonia. It did show a 1 cm nodule in the right upper lobe, will be followed on outpatient basis #2. advanced COPD, with FEV1 of 16% of predicted, consistent with stage IV COPD with chronic hypoxemic and hypercapnic respiratory failure, on home oxygen and maintenance dose prednisone #3. Former nicotine dependence, in remission #4. hypertension #5. History of chronic back pain #6. previous episode of pneumothorax 2 #7. History of skin cancer with surgical removal #8. History of thyroid nodule #9. Inguinal hernia Plan: Patient remains on high flow oxygen, he is quite dyspneic with any exertion, and has had severe limitation of exercise capacity related to his dyspnea and very poor underlying lung function. Today patient voiced his desire for hospice care, and he is requesting to go home under the hospice care. We discussed their decision at the bedside with the patient personally and his spouse, who also agrees with hospice. Patient is requesting a hospital bed, and the bedside commode. We will place a consult for hospice care. Discharge planning to arrange hospital bed, bedside commode and any other necessary equipment and patient could be discharged home with hospice. I performed a history & physical examination of the patient and discussed their management with my nurse practitioner, Mariella Manjarrez. I reviewed the nurse practitioner's note and agree with the documented findings and plan of care. Lung sounds are positive for diminished breath sounds with expiratory wheezes. The findings and the impression was discussed with the patient. I attest to the documentation by the nurse practitioner. Time with Patient: Less than 30
[2018-09-13 17:03] LABS: Glucose,Whole Blood 181 mg/dL (75-99)
[2018-09-13 20:30] LABS: Glucose,Whole Blood 225 mg/dL (75-99)
[2018-09-13] MEDS: METOPROLOL TARTRATE 25 MG TAB PO SCH (20:30)
[2018-09-13] MEDS: ATORVASTATIN 80 MG TAB PO SCH (20:30)
[2018-09-13] MEDS: AZITHROMYCIN 500 MG TAB PO SCH (20:30)
[2018-09-14] MEDS: HYDROcodone/APAP 5-325MG 1 EACH TAB PO PRN ×2 (03:48→08:54)
[2018-09-14] MEDS: IPRATROPIUM-ALBUTEROL 3 ML NEB INHALATION SCH ×4 (04:02→16:00)
[2018-09-14] MEDS: methylPREDNISolone SOD SUCCI 125 MG/2 ML VIAL IV SCH ×2 (05:57→12:34)
[2018-09-14 07:01] LABS: Glucose,Whole Blood 148 mg/dL (75-99)
[2018-09-14 08:03] VITALS: RESP 16
[2018-09-14] MEDS: BUDESONIDE 1 MG/2 ML NEBU INHALATION SCH (08:13)
[2018-09-14] MEDS: FORMOTEROL FUMARATE 20 MCG/2 ML NEBU INHALATION SCH (08:13)
[2018-09-14] MEDS: INSULIN ASPART (NovoLOG) 100 UNIT/ML VIAL SQ SCH ×2 (08:47→12:35)
[2018-09-14] MEDS: PANTOPRAZOLE 40 MG TABLET PO SCH (08:48)
[2018-09-14] MEDS: CHOLECALCIFEROL 1,000 UNIT TAB PO SCH (08:48)
[2018-09-14] MEDS: HEPARIN SODIUM,PORCINE 5,000 UNIT/ML 1 ML VIAL SQ SCH ×2 (08:48→16:55)
[2018-09-14] MEDS: ASPIRIN 81 MG PO SCH (08:48)
[2018-09-14] MEDS: HYDROCHLOROTHIAZIDE 25 MG TAB PO SCH (08:49)
[2018-09-14] MEDS: POTASSIUM CHLORIDE ER 20 MEQ TAB.ER PO SCH (08:49)
[2018-09-14] MEDS: CLOPIDOGREL 75 MG TAB PO SCH (08:49)
[2018-09-14] MEDS: ISOSORBIDE MONONITRATE ER 60 MG TAB.ER.24H PO SCH (08:49)
[2018-09-14] MEDS: ALPRAZolam 0.25 MG TAB PO PRN ×2 (08:54→15:45)
[2018-09-14 11:29] LABS: Glucose,Whole Blood 183 mg/dL (75-99)
[2018-09-14 14:52] VITALS: BP 160/100; TEMP 98
--- NOTE | 2018-09-14 15:25 | P.PN ---
Subjective Progress Note Date: 09/14/18 Principal diagnosis: Acute COPD exacerbation This is 73-year-old white male patient of Dr. Trinity Guerra, past medical history of advanced COPD, with baseline FEV1 of 0.53 L or 16% of the predicted value, with diffusion capacity of 51% of predicted, with chronic hypoxemic respiratory failure, who presented to the hospital on 09/10/2018 with complaints of dyspnea. Patient initially went to [facility] and was transferred to this hospital. Patient had refused BiPAP support refused intubation and CPR, his CODE STATUS is DO NOT RESUSCITATE. Patient symptoms started a few days ago and became progressively worse. Denied any chest pain or palpitations, denied any headaches, no fever or chills, no nausea vomiting or diarrhea.patient is a former smoker, but has quit smoking a while ago. Follows with Dr. Karimi in the pulmonary clinic, last seen in October 2017. he is on Inkruse Ellipta, DuoNeb, Ventolin, Symbicort at home, patient is on maintenance dose prednisone 10 mg daily. chest x-ray at [facility] showed marked hyperinflation, basilar atelectasis, pulmonary arterial hypertension, and a 1 cm nodule in the right upper lobe. lab work has been reviewed, no evidence of leukocytosis, CBC was unremarkable, electrolytes were unremarkable, CO2 is 37 consistent with history of chronic hypercapnic respiratory failure, BUN is 26 and creatinine 0.49. LFTs were within normal limits. he remains on 10 L per high flow nasal cannula, and his pulse ox is 99%.empiric antibiotic coverage in the form of Zithromax, nebulized bronchodilators, IV steroids, Symbicort. The patient is seen today 09/12/2018 in follow-up on the regular medical floor. He is currently awake and alert in no acute distress. He is resting comfortably in bed. He states he is still quite dyspneic on minimal exertion. Still not back to his baseline. He has still on 10 L high flow nasal cannula and maintaining O2 saturations in the 90s. Slightly tachycardic. Tachypneic. He remains on DuoNeb inhalations, Pulmicort and Perforomist inhalations, IV site Medrol, antibiotics in the form of azithromycin. On 09/13/2018 patient seen in follow-up on medical surgical floor. Patient is r esting in bed, mildly short of breath at rest, remains on 8 L of oxygen with a pulse ox of 97%. He has been on IV steroids, nebulized bronchodilators, Pulmicort and Perforomist, empiric antibiotics. Patient has been interested in hospice, he is requesting to go home with hospice care. Considering his extremely poor lung function, end-stage COPD/emphysema, other comorbidities, this is certainly reasonable. He has been voicing his request to respiratory therapist, requested to speak to us about hospice care. His is at the bedside, and agrees with his decision. On 09/14/2018 patient seen in follow-up on medical surgical floor. Resting in bed, in no acute distress, he is on high flow nasal cannula, currently at 8 L, and his pulse ox is 94%, patient is dyspneic at rest, and with any activity. He is afebrile, hemodynamically stable. Yesterday patient requested to be enrolled in hospice, and we consulted [facility]. Arrangements are in place for transfer the patient home under the hospice care. Objective - Vital Signs Vital signs: Vital Signs Temp 98 F 09/14/18 14:51 Pulse 118 H 09/14/18 14:51 Resp 16 09/14/18 14:51 BP 160/100 09/14/18 14:51 Pulse Ox 98 09/14/18 14:51 Intake & Output 09/13/18 09/14/18 09/14/18 18:59 06:59 18:59 Output Total 350 350 Balance -350 -350 Output: Urine 350 350 Other: Voiding Method Toilet # Voids 1 1 - Exam GENERAL EXAM: Alert, active, mildly dyspneic at rest and conversation, he is on 8 L of oxygen with a pulse ox of 97% HEAD: Normocephalic/atraumatic. EYES: Normal reaction of pupils, equal size. Conjunctiva pink, sclera white. NOSE: Clear with pink turbinates. THROAT: No erythema or exudates. NECK: No masses, no JVD, no thyroid enlargement, no adenopathy. CHEST: No chest wall deformity. Symmetrical expansion. LUNGS: Equal air entry with extremely diminished breath sounds, with end expiratory wheezes, and prolongation of expiratory phase of breathing CVS: Regular rate and rhythm, normal S1 and S2, no gallops, no murmurs, no rubs ABDOMEN: Soft, nontender. No hepatosplenomegaly, normal bowel sounds, no guarding or rigidity. EXTREMITIES: No clubbing, no edema, no cyanosis, 2+ pulses and upper and lower extremities. MUSCULOSKELETAL: Muscle strength and tone normal. SPINE: No scoliosis or deformity SKIN: No rashes CENTRAL NERVOUS SYSTEM: Alert and oriented -3. No focal deficits, tone is normal in all 4 extremities. PSYCHIATRIC: Alert and oriented -3. Appropriate affect. Intact judgment and insight. - Labs CBC & Chem 7: 09/11/18 08:37 09/11/18 08:37 Labs: Abnormal Lab Results - Last 24 Hours (Table) 09/13/18 09/13/18 09/14/18 Range/Units 16:52 20:29 06:55 POC Glucose (mg/dL) 181 H 225 H 148 H (75-99) mg/dL 09/14/18 Range/Units 11:28 POC Glucose (mg/dL) 183 H (75-99) mg/dL Assessment and Plan Plan: Assessment: #1. Acute on chronic hypoxemic respiratory failure related to exacerbation of s satniago chronic obstructive pulmonary disease, chest x-ray did not show any clear evidence of pneumonia. It did show a 1 cm nodule in the right upper lobe, will be followed on outpatient basis #2. advanced COPD, with FEV1 of 16% of predicted, consistent with stage IV COPD with chronic hypoxemic and hypercapnic respiratory failure, on home oxygen and maintenance dose prednisone #3. Former nicotine dependence, in remission #4. hypertension #5. History of chronic back pain #6. previous episode of pneumothorax 2 #7. History of skin cancer with surgical removal #8. History of thyroid nodule #9. Inguinal hernia Plan: Patient is being transferred home today under the hospice care. Home equipment, home oxygen, hospital bed, commode is being arranged. No further recommendations. I performed a history & physical examination of the patient and discussed their management with my nurse practitioner, Mariella Manjarrez. I reviewed the nurse practitioner's note and agree with the documented findings and plan of care. Lung sounds are positive for diminished breath sounds with expiratory wheezes. The findings and the impression was discussed with the patient. I attest to the documentation by the nurse practitioner. Time with Patient: Less than 30
[2018-09-14] MEDS: METOPROLOL TARTRATE 25 MG TAB PO SCH (15:45)
[2018-09-14 16:03] VITALS: PULSE 105
== END 2018-09-14 18:27 | disposition hospice, home (50) | DRG 190 ==
LOC: EC 15:20 → 4SSUR 15:56
PROVIDERS: ADMIT Internal Medicine; ATTEND Internal Medicine
DX: J44.1 Chronic obstructive pulmonary disease with (acute) exacerbation (principal); J96.21 Acute and chronic respiratory failure with hypoxia; J96.22 Acute and chronic respiratory failure with hypercapnia; I27.21 Secondary pulmonary arterial hypertension; J98.11 Atelectasis; G89.29 Other chronic pain; I10 Essential (primary) hypertension; I25.10 Atherosclerotic heart disease of native coronary artery without angina pectoris; K21.9 Gastro-esophageal reflux disease without esophagitis; K40.90 Unilateral inguinal hernia, without obstruction or gangrene, not specified as recurrent; M54.9 Dorsalgia, unspecified; Z66 Do not resuscitate; Z79.02 Long term (current) use of antithrombotics/antiplatelets; Z79.51 Long term (current) use of inhaled steroids; Z79.82 Long term (current) use of aspirin; Z79.899 Other long term (current) drug therapy; Z79.52 Long term (current) use of systemic steroids; Z87.891 Personal history of nicotine dependence; Z99.81 Dependence on supplemental oxygen; Z88.0 Allergy status to penicillin; Z85.828 Personal history of other malignant neoplasm of skin; Z85.51 Personal history of malignant neoplasm of bladder; Z90.49 Acquired absence of other specified parts of digestive tract; Z82.5 Family history of asthma and other chronic lower respiratory diseases
CPT/HCPCS: 71045; 80053; 85025; 93005; 94640; 94760; 96374; 99285